=== PATIENT | male | born 1975 | race Caucasian/White ===

== ENCOUNTER 2019-12-15 18:15 | Inpatient (IN) | payer OTHER ==
[~2019-12-15] VITALS: Ht 170.2 cm; Wt 70.0 kg
[2019-12-15 19:54] VITALS: BP 116/79
[2019-12-15] MEDS ORDERED: ONDANSETRON HCL 4 MG/2 ML VIAL IVP PRN (22:15)
[2019-12-15] MEDS ORDERED: MAGNESIUM HYDROXIDE SUSPENSION 30 ML UDCUP PO PRN (22:15)
[2019-12-15] MEDS ORDERED: ZOLPIDEM TARTRATE 5 MG TABLET PO PRN (22:15)
[2019-12-15] MEDS ORDERED: MORPHINE SULFATE 2 MG/ML SYRINGE IVP PRN (22:15)
[2019-12-15] MEDS ORDERED: BISACODYL 10 MG RECTAL RECTAL SUPPOSITORY PR PRN (22:15)
[2019-12-16] MEDS: HEPARIN SODIUM,PORCINE 5,000 UNITS/ML VIAL SQ SCH ×3 (00:24→16:00)
[2019-12-16 05:28] VITALS: BP 122/87
[2019-12-16 07:13] LABS: GLUCOMETER DEV NAME(LOC) 6S.1; GLUCOSE,POINT OF CARE 114 MG/DL (70-110)
[2019-12-16 07:34] VITALS: BP 132/80
[2019-12-16] MEDS: DOCUSATE SODIUM 100 MG CAPSULE PO SCH ×2 (08:26→20:09)
[2019-12-16] MEDS: PANTOPRAZOLE SODIUM 40 MG DR TABLET PO SCH (08:27)
[2019-12-16] MEDS ORDERED: GADOBUTROL 1 MMOL/ML 10 ML VIAL IVP ONE (09:47)
[2019-12-16] MEDS: HYDROCODONE/ACETAMINOPHEN 5-325 MG TABLET PO PRN ×2 (12:26→20:09)
[2019-12-16] MEDS ORDERED: DEXTROSE 50%-WATER 25 GM/50 ML SYRINGE IVP PRN (12:30)
[2019-12-16 14:21] LABS: GLUCOMETER DEV NAME(LOC) 6S.1; GLUCOSE,POINT OF CARE 188 MG/DL (70-110)
[2019-12-16] MEDS: HYPROMELLOSE 0.5% 15 ML OPHTHALMIC SOLUTION OS SCH ×3 (14:46→20:09)
[2019-12-16 15:37] VITALS: BP 121/78
[2019-12-16] MEDS: INSULIN LISPRO 100 UNITS/ML SQ PRN (17:43)
[2019-12-16 17:51] LABS: GLUCOMETER DEV NAME(LOC) 6S.1; GLUCOSE,POINT OF CARE 155 MG/DL (70-110)
[2019-12-16 20:18] VITALS: BP 110/75
[2019-12-16 21:13] LABS: GLUCOMETER DEV NAME(LOC) 6S.1; GLUCOSE,POINT OF CARE 138 MG/DL (70-110)
[2019-12-17 05:28] VITALS: BP 126/88
[2019-12-17 06:06] LABS: GLUCOMETER DEV NAME(LOC) 6S.1; GLUCOSE,POINT OF CARE 123 MG/DL (70-110)
[2019-12-17 07:49] VITALS: BP 119/84
[2019-12-17] MEDS: PANTOPRAZOLE SODIUM 40 MG DR TABLET PO SCH (07:59)
[2019-12-17] MEDS: HEPARIN SODIUM,PORCINE 5,000 UNITS/ML VIAL SQ SCH ×4 (07:59→23:44)
[2019-12-17] MEDS: HYPROMELLOSE 0.5% 15 ML OPHTHALMIC SOLUTION OS SCH ×4 (08:00→20:00)
[2019-12-17] MEDS: DOCUSATE SODIUM 100 MG CAPSULE PO SCH ×2 (08:00→20:00)
[2019-12-17] MEDS: ACETAMINOPHEN 325 MG TABLET PO PRN (08:00)
[2019-12-17] MEDS: INSULIN LISPRO 100 UNITS/ML SQ PRN ×2 (11:30→17:33)
[2019-12-17 15:25] VITALS: BP 141/86
[2019-12-17 16:51] LABS: GLUCOMETER DEV NAME(LOC) 6S.1; GLUCOSE,POINT OF CARE 185 MG/DL (70-110)
[2019-12-17] MEDS: MetFORMIN HCL 500 MG TABLET PO SCH (17:25)
[2019-12-17 20:03] VITALS: BP 130/84
[2019-12-17 20:27] LABS: GLUCOMETER DEV NAME(LOC) 6S.1; GLUCOSE,POINT OF CARE 132 MG/DL (70-110)
[2019-12-17 20:27] LABS: GLUCOMETER DEV NAME(LOC) 6S.1; GLUCOSE,POINT OF CARE 154 MG/DL (70-110)
[2019-12-18 04:45] VITALS: BP 127/81
[2019-12-18] MEDS: HYDROCODONE/ACETAMINOPHEN 5-325 MG TABLET PO PRN ×2 (06:34→16:29)
[2019-12-18 06:47] LABS: GLUCOMETER DEV NAME(LOC) 6S.1; GLUCOSE,POINT OF CARE 119 MG/DL (70-110)
[2019-12-18 07:46] VITALS: BP 136/88
[2019-12-18] MEDS: MetFORMIN HCL 500 MG TABLET PO SCH ×2 (07:46→17:32)
[2019-12-18] MEDS: HEPARIN SODIUM,PORCINE 5,000 UNITS/ML VIAL SQ SCH ×3 (07:46→23:51)
[2019-12-18] MEDS: DOCUSATE SODIUM 100 MG CAPSULE PO SCH ×2 (07:46→20:27)
[2019-12-18] MEDS: PANTOPRAZOLE SODIUM 40 MG DR TABLET PO SCH (07:46)
[2019-12-18] MEDS: HYPROMELLOSE 0.5% 15 ML OPHTHALMIC SOLUTION OS SCH ×4 (07:46→20:27)
[2019-12-18 09:51] LABS: BASOPHILS % (AUTO) 0.8 % (0.0-2.0); EOSINOPHILS % (AUTO) 2.7 % (1.0-6.0); HEMATOCRIT 38.8 % (41-53); HEMOGLOBIN 12.9 g/dL (13.5-17.5); LYMPHOCYTES # (AUTO) 1.9 K/uL (1.0-4.8); MEAN CORPUSCULAR HEMOGLOBIN 29.4 pg (26.0-34.0); MEAN CORPUSCULAR HGB CONC 33.3 G/dL (31.0-37.0); MEAN CORPUSCULAR VOLUME 88 fL (80-100); MONOCYTES # (AUTO) 0.6 K/uL (0.1-1.0); MONOCYTES % (AUTO) 8.9 % (2.0-9.0); NEUTROPHILS # (AUTO) 4.3 K/uL (1.8-7.7); NEUTROPHILS % (AUTO) 60.6 % (40.0-70.0); PLATELET COUNT (AUTO) 204 K/uL (150-450); RED CELL DISTRIBUTION WIDTH 14.2 % (11.5-14.5)
[2019-12-18 09:59] LABS: ANION GAP 3 mmol/L (8-16); CALCIUM, TOTAL 8.9 mg/dL (8.8-10.5); CARBON DIOXIDE 33 mmol/L (22-29); CHLORIDE 103 mmol/L (98-107); CREATININE 0.96 mg/dL (0.60-1.30); GLOMERULAR FILTR. RATE CALC > 60 mL/min (>60); GLUCOSE,RANDOM 194 mg/dL (70-110); POTASSIUM 4.4 mmol/L (3.5-5.1); SODIUM SERUM 139 mmol/L (136-145); UREA NITROGEN, BLOOD 13 mg/dL (7-18)
[2019-12-18 10:04] LABS: ALANINE AMINOTRANSFERASE 24 U/L (12-78); ALBUMIN 3.8 g/dL (3.4-5.0); ALKALINE PHOSPHATASE 79 U/L (46-116); ASPARTATE AMINOTRANSFERASE 11 U/L (15-37); BILIRUBIN,TOTAL 0.9 mg/dL (0.1-1.0); TOTAL PROTEIN, SERUM 6.7 g/dL (6.4-8.2)
[2019-12-18] MEDS: INSULIN LISPRO 100 UNITS/ML SQ PRN ×2 (12:01→20:37)
[2019-12-18 12:35] LABS: GLUCOMETER DEV NAME(LOC) 6S.1; GLUCOSE,POINT OF CARE 186 MG/DL (70-110)
[2019-12-18 15:37] VITALS: BP 130/70
[2019-12-18 17:40] LABS: GLUCOMETER DEV NAME(LOC) 6S.1; GLUCOSE,POINT OF CARE 137 MG/DL (70-110)
[2019-12-18 19:12] VITALS: BP 124/80
[2019-12-19 00:55] LABS: GLUCOMETER DEV NAME(LOC) 6S.1; GLUCOSE,POINT OF CARE 214 MG/DL (70-110)
[2019-12-19 04:50] VITALS: BP 136/82
[2019-12-19] MEDS: INSULIN LISPRO 100 UNITS/ML SQ PRN ×4 (06:42→21:04)
[2019-12-19 07:27] VITALS: BP 128/84
[2019-12-19] MEDS: MetFORMIN HCL 500 MG TABLET PO SCH ×2 (07:43→17:30)
[2019-12-19] MEDS: PANTOPRAZOLE SODIUM 40 MG DR TABLET PO SCH (07:43)
[2019-12-19] MEDS: HEPARIN SODIUM,PORCINE 5,000 UNITS/ML VIAL SQ SCH ×3 (07:44→23:58)
[2019-12-19] MEDS: HYPROMELLOSE 0.5% 15 ML OPHTHALMIC SOLUTION OS SCH ×4 (07:44→20:33)
[2019-12-19] MEDS: DOCUSATE SODIUM 100 MG CAPSULE PO SCH ×2 (07:44→20:32)
[2019-12-19] MEDS: HYDROCODONE/ACETAMINOPHEN 5-325 MG TABLET PO PRN (07:44)
[2019-12-19 11:37] LABS: GLUCOMETER DEV NAME(LOC) 6S.1; GLUCOSE,POINT OF CARE 209 MG/DL (70-110)
[2019-12-19 11:37] LABS: GLUCOMETER DEV NAME(LOC) 6S.1; GLUCOSE,POINT OF CARE 145 MG/DL (70-110)
[2019-12-19 15:36] VITALS: BP 145/82
[2019-12-19 19:30] VITALS: BP 137/88
[2019-12-19 19:59] LABS: GLUCOMETER DEV NAME(LOC) 6S.1; GLUCOSE,POINT OF CARE 161 MG/DL (70-110)
[2019-12-19] MEDS: ACETAMINOPHEN 325 MG TABLET PO PRN (20:33)
[2019-12-19] MEDS ORDERED: FLUTICASONE PROPIONATE 50 MCG/SPRAY 16 GM NASAL SPRAY NASAL PRN (23:15)
[2019-12-20 05:44] LABS: GLUCOMETER DEV NAME(LOC) 6S.1; GLUCOSE,POINT OF CARE 176 MG/DL (70-110)
[2019-12-20 06:22] VITALS: BP 134/95
[2019-12-20] MEDS: ACETAMINOPHEN 325 MG TABLET PO PRN (06:22)
[2019-12-20 06:31] LABS: GLUCOMETER DEV NAME(LOC) 6S.1; GLUCOSE,POINT OF CARE 136 MG/DL (70-110)
[2019-12-20] MEDS: HEPARIN SODIUM,PORCINE 5,000 UNITS/ML VIAL SQ SCH ×3 (07:49→23:24)
[2019-12-20] MEDS: HYDROCODONE/ACETAMINOPHEN 5-325 MG TABLET PO PRN (07:52)
[2019-12-20] MEDS: DOCUSATE SODIUM 100 MG CAPSULE PO SCH ×2 (07:52→20:27)
[2019-12-20] MEDS: PANTOPRAZOLE SODIUM 40 MG DR TABLET PO SCH (07:52)
[2019-12-20] MEDS: MetFORMIN HCL 500 MG TABLET PO SCH ×2 (07:52→17:33)
[2019-12-20] MEDS: HYPROMELLOSE 0.5% 15 ML OPHTHALMIC SOLUTION OS SCH ×4 (07:52→20:27)
[2019-12-20 08:01] VITALS: BP 129/82
[2019-12-20] MEDS: INSULIN LISPRO 100 UNITS/ML SQ PRN ×2 (11:50→20:29)
[2019-12-20 15:59] VITALS: BP 133/86
[2019-12-20 17:43] LABS: GLUCOMETER DEV NAME(LOC) 6S.1; GLUCOSE,POINT OF CARE 161 MG/DL (70-110)
[2019-12-20 17:44] LABS: GLUCOMETER DEV NAME(LOC) 6S.1; GLUCOSE,POINT OF CARE 130 MG/DL (70-110)
[2019-12-20 19:31] VITALS: BP 136/79
[2019-12-20 20:42] LABS: GLUCOMETER DEV NAME(LOC) 6S.1; GLUCOSE,POINT OF CARE 267 MG/DL (70-110)
[2019-12-21 04:58] VITALS: BP 133/84
[2019-12-21] MEDS: INSULIN LISPRO 100 UNITS/ML SQ PRN ×3 (05:50→17:13)
[2019-12-21 06:06] LABS: GLUCOMETER DEV NAME(LOC) 6S.1; GLUCOSE,POINT OF CARE 162 MG/DL (70-110)
[2019-12-21 07:19] VITALS: BP 133/82
[2019-12-21] MEDS: PANTOPRAZOLE SODIUM 40 MG DR TABLET PO SCH (09:08)
[2019-12-21] MEDS: HEPARIN SODIUM,PORCINE 5,000 UNITS/ML VIAL SQ SCH ×3 (09:08→23:24)
[2019-12-21] MEDS: HYPROMELLOSE 0.5% 15 ML OPHTHALMIC SOLUTION OS SCH ×4 (09:08→21:00)
[2019-12-21] MEDS: MetFORMIN HCL 500 MG TABLET PO SCH ×2 (09:08→17:14)
[2019-12-21] MEDS: DOCUSATE SODIUM 100 MG CAPSULE PO SCH ×2 (09:08→21:00)
[2019-12-21 15:10] VITALS: BP 134/88
[2019-12-21 16:43] LABS: GLUCOMETER DEV NAME(LOC) 6S.1; GLUCOSE,POINT OF CARE 169 MG/DL (70-110)
[2019-12-21 18:12] LABS: GLUCOMETER DEV NAME(LOC) 6S.1; GLUCOSE,POINT OF CARE 200 MG/DL (70-110)
[2019-12-21 20:25] VITALS: BP 124/77
[2019-12-21 20:32] LABS: GLUCOMETER DEV NAME(LOC) 6S.1; GLUCOSE,POINT OF CARE 195 MG/DL (70-110)
[2019-12-22 04:00] VITALS: BP 130/83
[2019-12-22] MEDS: INSULIN LISPRO 100 UNITS/ML SQ PRN ×3 (07:47→17:03)
[2019-12-22 07:56] VITALS: BP 121/77
[2019-12-22] MEDS: MetFORMIN HCL 500 MG TABLET PO SCH (08:20)
[2019-12-22] MEDS: HYPROMELLOSE 0.5% 15 ML OPHTHALMIC SOLUTION OS SCH ×3 (08:20→15:23)
[2019-12-22] MEDS: HEPARIN SODIUM,PORCINE 5,000 UNITS/ML VIAL SQ SCH (08:20)
[2019-12-22] MEDS: PANTOPRAZOLE SODIUM 40 MG DR TABLET PO SCH (08:20)
[2019-12-22] MEDS: DOCUSATE SODIUM 100 MG CAPSULE PO SCH (08:20)
[2019-12-22] MEDS ORDERED: DOCU-275 PO (14:30)
[2019-12-22] MEDS ORDERED: HYPR15DR23 OS (14:30)
[2019-12-22] MEDS ORDERED: METF-960 PO (14:31)
[2019-12-22] MEDS ORDERED: ACET-3207 PO (14:32)
[2019-12-22] MEDS ORDERED: BISA10SU11 PR (14:33)
[2019-12-22] MEDS ORDERED: INSU100V SQ (14:46)
[2019-12-22] MEDS ORDERED: MOM30 PO (14:47)
[2019-12-22 15:01] VITALS: BP 133/77
[2019-12-22 16:52] LABS: GLUCOMETER DEV NAME(LOC) 6N.2; GLUCOSE,POINT OF CARE 212 MG/DL (70-110)
[2019-12-22 16:52] LABS: GLUCOMETER DEV NAME(LOC) 6N.2; GLUCOSE,POINT OF CARE 146 MG/DL (70-110)
[2019-12-22] MEDS ORDERED: MetFORMIN HCL 500 MG TABLET PO SCH (18:00)
[2019-12-22 20:29] LABS: GLUCOMETER DEV NAME(LOC) 6S.1; GLUCOSE,POINT OF CARE 166 MG/DL (70-110)
== END 2019-12-22 18:00 | DRG 123 ==
LOC: 6S 18:15
PROVIDERS: ADMIT Internal Medicine; ATTEND Internal Medicine
DX: H49.02 Third [oculomotor] nerve palsy, left eye (principal); H02.402 Unspecified ptosis of left eyelid; E11.9 Type 2 diabetes mellitus without complications
CPT/HCPCS: 70540; 70544; 70553; 83036; A9585; J1644